=== PATIENT | female | born 1945 | race Caucasian/White ===

== ENCOUNTER 2021-05-22 12:26 | Inpatient (IN) | payer MEDICARE, BC ==
[~2021-05-22] VITALS: Ht 160 cm; Wt 66.7 kg
[2021-05-22] MEDS ORDERED: AMLO-212 PO (12:46)
[2021-05-22] MEDS ORDERED: ATOR40TA PO (12:47)
[2021-05-22] MEDS ORDERED: LEVO25TA9 PO (12:48)
[2021-05-22] MEDS ORDERED: TELM80TA2 PO (12:48)
[2021-05-22] MEDS ORDERED: ZOLP10TA2 PO (12:49)
[2021-05-22] MEDS ORDERED: BUPR-319 PO (12:49)
[2021-05-22] MEDS ORDERED: PANT40TA49 PO (12:49)
[2021-05-22] MEDS ORDERED: LITH450T2 PO (12:50)
[2021-05-22] MEDS ORDERED: RIVA20TA PO (12:50)
[2021-05-22] MEDS ORDERED: QUET25TA PO (12:51)
[2021-05-22] MEDS ORDERED: [UNRECOGNIZED DRUG - CODE] PO (13:04)
[2021-05-22 13:08] LABS: HEMATOCRIT 35.1 % (31.2-41.9); MEAN CORPUSCULAR HEMOGLOBIN 30.6 uug (24.7-32.8); MEAN CORPUSCULAR VOLUME 91.3 fL (75.5-95.3); PLATELET COUNT (AUTO) 359 K/uL (179-408)
[2021-05-22 13:13] LABS: CARBON DIOXIDE 20 mmol/L (21-32); CHLORIDE 105 mmol/L (98-107); GLUCOSE 104 mg/dL (74-106); POTASSIUM 4.4 mmol/L (3.5-5.1); UREA NITROGEN, BLOOD 18 mg/dL (7-18)
[2021-05-22 13:18] LABS: ALANINE AMINOTRANSFERASE 24 U/L (14-59); ALKALINE PHOSPHATASE 130 U/L (50-136); ASPARTATE AMINOTRANSFERASE 15 U/L (15-37); BILIRUBIN,DIRECT 0.1 mg/dL (0.0-0.2); BILIRUBIN,TOTAL 0.3 mg/dL (0.2-1.0); TOTAL PROTEIN, SERUM 7.5 g/dL (6.4-8.2)
[2021-05-22 13:25] LABS: ACETAMINOPHEN < 2.0 ug/mL (10-30); ETHANOL < 3 MG/DL (0-0)
[2021-05-22 13:26] LABS: THYROID STIMULATING HORMONE 1.906 mIU/mL (0.358-3.740)
--- NOTE | 2021-05-22 14:05 | NUR ---
Called PET team/Mariah to evaluate Pt.
--- NOTE | 2021-05-22 15:03 | NUR ---
PET personal injury paralegal, Mariah, bedside, writing a hold for [facility] [employer].
--- NOTE | 2021-05-22 16:34 | NUR ---
Called report to PABLO Gann. Pt going to [facility]
--- NOTE | 2021-05-22 17:30 | NUR ---
Pt trans to [facility], NAD noted.
[2021-05-22 18:00] VITALS: BP 135/57
--- NOTE | 2021-05-22 18:10 | NUR ---
Gps/Nurse Educator- Report received from from You SALINAS . Received patient via wheel chair,alert, oriented x 3, anxious, tremulous, unable to sign her name, but agreed to put her initial in all of the appropriate areas. Called her son Austin Dumont, who is a Nurse Practitioner at [facility] [facility] [employer] [facility] ([phone]) , claimed staff can call his anytime. Patient denies any S.I nor H.I. , but expressed feelings of being depressed for more than a month now. Patient claimed she had her Covid 19 vaccines ( 2020 and second dose on 2020) Patient's son Austin claimed he has the DPOA and will provide the papers when her gets home. Patient also claimed pt. has advance directives , w/c will be provided too on his visit. Oriented to unit settings Routine admission care.
[2021-05-22] MEDS ORDERED: MAGNESIUM HYDROXIDE 30 ML LIQUID UDC PO PRN (18:15)
[2021-05-22] MEDS ORDERED: TEMAZEPAM 7.5 MG CAPSULE PO PRN (18:15)
[2021-05-22] MEDS ORDERED: ACETAMINOPHEN 325 MG TABLET PO PRN (18:15)
[2021-05-22] MEDS ORDERED: LORAZEPAM 0.5 MG TABLET PO PRN (18:15)
[2021-05-22] MEDS ORDERED: MAG HYDROX/AL HYDROX/SIMETH 30 ML LIQUID UDC PO PRN (18:15)
[2021-05-22 20:00] VITALS: BP 110/53
[2021-05-22] MEDS ORDERED: CLONAZEPAM 0.5 MG TABLET PO PRN (20:15)
[2021-05-22] MEDS: ATORVASTATIN 40 MG TABLET PO SCH (20:32)
[2021-05-22] MEDS: RIVAROXABAN 10 MG TABLET PO SCH (20:36)
[2021-05-22] MEDS: ZOLPIDEM 5 MG TABLET PO PRN (22:00)
--- NOTE | 2021-05-23 05:48 | NUR ---
PT SLEPT FOR 7.15 HRS.ABLE TO CALM DOWN AND WENT TO SLEEP.GOOD EFF.OF PRN MEDS.IN NO ACUTE DISTRESS.NO OTHER BEHAVIORA ISSUES.WILL CONTINUE TO MONITOR.
[2021-05-23] MEDS: PANTOPRAZOLE SODIUM 40 MG TABLET.DR PO SCH (06:40)
[2021-05-23] MEDS: LEVOTHYROXINE SODIUM 25 MCG TABLET PO SCH (06:40)
[2021-05-23 07:03] LABS: HEMATOCRIT 31.6 % (31.2-41.9); MEAN CORPUSCULAR HEMOGLOBIN 30.5 uug (24.7-32.8); MEAN CORPUSCULAR VOLUME 91.3 fL (75.5-95.3); PLATELET COUNT (AUTO) 306 K/uL (179-408)
[2021-05-23 07:30] VITALS: BP 123/47
[2021-05-23 07:43] LABS: BILIRUBIN,TOTAL 0.4 mg/dL (0.2-1.0); CREATININE 0.9 mg/dL (0.6-1.3); MAGNESIUM 2.1 mg/dL (1.8-2.4); PHOSPHOROUS 4.3 mg/dL (2.5-4.9); POTASSIUM 4.1 mmol/L (3.5-5.1); TOTAL PROTEIN, SERUM 6.4 g/dL (6.4-8.2)
[2021-05-23] MEDS: AMLODIPINE 5 MG TABLET PO SCH (08:12)
[2021-05-23 08:16] LABS: THYROID STIMULATING HORMONE 2.189 mIU/mL (0.358-3.740)
[2021-05-23] MEDS ORDERED: Medication Not On Formulary EA (Rivaroxaban (Xarelto) 1 TAB) PO SCH (09:00)
[2021-05-23] MEDS ORDERED: ESTRADIOL PO SCH (09:00)
[2021-05-23] MEDS ORDERED: NORETHINDRONE ACETATE PO SCH (09:00)
--- NOTE | 2021-05-23 13:31 | NUR ---
PATIENT SEEN AND EXAMINED BY DR DEL CID WITH NEW ORDERS AND NOTED.
[2021-05-23] MEDS: buPROPion XL 150 MG TAB.SR.24H PO SCH (14:08)
[2021-05-23] MEDS: LITHIUM CARBONATE 150 MG CAPSULE PO SCH ×2 (14:08→16:21)
[2021-05-23 16:00] VITALS: BP 106/44
[2021-05-23] MEDS: RIVAROXABAN 10 MG TABLET PO SCH (16:23)
--- NOTE | 2021-05-23 18:00 | NUR ---
PATIENT IS COOPERATIVE AND COMPLIANT WITH MEDICATIONS AND CARE REMAIN ON XARELTO ORDERED WITH NO S/S OF BLEEDING NOT IN DISTRESS AT THIS TIME.
[2021-05-23 20:17] VITALS: BP 118/48
[2021-05-23] MEDS: ATORVASTATIN 40 MG TABLET PO SCH (20:29)
[2021-05-23] MEDS: QUETIAPINE FUMARATE 25 MG TABLET PO SCH (20:29)
[2021-05-23] MEDS: ZOLPIDEM 5 MG TABLET PO PRN (22:29)
[2021-05-24] MEDS: PANTOPRAZOLE SODIUM 40 MG TABLET.DR PO SCH (06:38)
[2021-05-24] MEDS: LEVOTHYROXINE SODIUM 25 MCG TABLET PO SCH (06:38)
--- NOTE | 2021-05-24 06:56 | NUR ---
PATIENT SLEPT FOR APPROX. 7.15 HOURS THROUGH THE NIGHT. WILL CONTINUE TO MONITOR.
--- NOTE | 2021-05-24 07:30 | NUR ---
Received report from PABLO Floyd. All questions, comments, and concerns were addressed. Received patient asleep in her assigned room. Bed is in low and locked position.
[2021-05-24 08:00] VITALS: BP 100/42
[2021-05-24] MEDS: AMLODIPINE 5 MG TABLET PO SCH (08:37)
[2021-05-24] MEDS: LITHIUM CARBONATE 150 MG CAPSULE PO SCH ×3 (08:38→17:07)
[2021-05-24] MEDS: buPROPion XL 150 MG TAB.SR.24H PO SCH (08:38)
--- NOTE | 2021-05-24 10:39 | NUR ---
JOSH Initial Discharge Plan: Patient currently resides at home [address] [place] [address] by herself. Patient's son Austin Dumont ([phone]) is the DPOA. Patient would like to return home upon discharge. JOSH will continue to work with patient, family, and MD to ensure a safe and proper discharge plan.
--- NOTE | 2021-05-24 10:40 | NUR ---
JOSH Family Contact: JOSH spoke with patient's son Austin Dumont ([phone]) who stated he is the DPOA and will provide the documents within he next few days. Austin stated he will be hiring caregivers for the patient upon discharge. Austin stated he will machine pecan picker the patient and take her home once stable.
--- NOTE | 2021-05-24 10:41 | NUR ---
Treatment Plan: Pt refused to sign treatment plan form due to hand tremors.
--- NOTE | 2021-05-24 10:47 | NUR ---
Firearms Report: [employer] completed and submitted a [employer] firearms report for 5150 grave disability certifications. A copy of report has been placed in patient chart.
--- NOTE | 2021-05-24 12:07 | NUR ---
Patient reporting weakness in bilateral hands post-abdominal surgery. Dr. Bell, psychiatrist, gave orders for neurology consult. Dr. Fried notified of consult, stated he will be here later today.
--- NOTE | 2021-05-24 15:11 | NUR ---
Patient is alert and oriented. She is guarded and withdrawn to her room, anxious, and restless. Patient denies suicidal and homicidal ideation, denies hallucinations. She states that she is extremely anxious and feels like she is in distress due to the anxiety. Patient is compliant with medication, no adverse reaction noted. Patient is able to ambulate with a FWW, able to provide for self care and ADL's independently. Patient encouraged to participate in the unit groups and therapeutic milieu. Patient educated about impulse control and communicating needs to staff appropriately. Bed is in low and locked position.
[2021-05-24 16:45] VITALS: BP 125/42
[2021-05-24] MEDS: RIVAROXABAN 10 MG TABLET PO SCH (17:07)
[2021-05-24 20:00] VITALS: BP 115/49
[2021-05-24] MEDS: QUETIAPINE FUMARATE 25 MG TABLET PO SCH (20:17)
[2021-05-24] MEDS: ATORVASTATIN 40 MG TABLET PO SCH (20:17)
[2021-05-24] MEDS: ZOLPIDEM 5 MG TABLET PO PRN (21:19)
[2021-05-25] MEDS: PANTOPRAZOLE SODIUM 40 MG TABLET.DR PO SCH (06:31)
[2021-05-25] MEDS: LEVOTHYROXINE SODIUM 25 MCG TABLET PO SCH (06:31)
--- NOTE | 2021-05-25 06:38 | NUR ---
PT SLEPT GOOD THRU THE NIGHT AFTER TOOK AMBIEN 10 MG PO LAST NIGHT.STILL HAVING SL.TREMOR BUT ABLE TO HOLD THE MED CUP BETTER THAN LAST NIGHT.WILL ASK DAY SHIFT TO F/U WITH RADIOLOGY DEP.FOR MRI SCHEDULE.WILL CONTINUE TO MONITOR.
--- NOTE | 2021-05-25 07:30 | NUR ---
Received report from PABLO Karu. All questions, comments, and concerns were addressed. Received patient asleep in her assigned bed. bed is in low and locked position.
[2021-05-25 07:52] VITALS: BP 115/37
[2021-05-25] MEDS: buPROPion XL 150 MG TAB.SR.24H PO SCH (08:42)
[2021-05-25] MEDS: AMLODIPINE 5 MG TABLET PO SCH (08:42)
[2021-05-25] MEDS: LITHIUM CARBONATE 150 MG CAPSULE PO SCH ×3 (08:42→16:37)
--- NOTE | 2021-05-25 09:50 | NUR ---
This life underwriter received a call from [facility] Radiology department and spoke with Gagan to schedule patient's ordered MRI for today between [id number]. This life underwriter called [facility] and scheduled pickup for 1130. belt and link shop supervisor and [facility] director notified. Patient notified. Patient states that she is feeling extremely anxious about the MRI due to claustrophobia. Patient educated about her rights as a patient to accept or refuse treatment, educated about risks and benefits, but she states that she does not want to do the MRI. Patient instructed to consider the education and let this life underwriter know her decision by 10am. patient verbalizes understanding.
--- NOTE | 2021-05-25 10:50 | NUR ---
Patient decided she does not want to do the MRI. Patient provided with education about risks and benefits and about coping mechanisms for anxiety, but she is refusing. Patient states she would prefer to follow up with her outpatient physician in regards to the need for an MRI. [facility] radiology called to cancel MRI appointment, [facility] ambulance called to cancel transportation, and ice house supervisor notified about cancellation.
[2021-05-25 16:00] VITALS: BP 115/47
[2021-05-25] MEDS: RIVAROXABAN 10 MG TABLET PO SCH (16:38)
[2021-05-25 20:03] VITALS: BP 131/57
[2021-05-25] MEDS: QUETIAPINE FUMARATE 25 MG TABLET PO SCH (20:47)
[2021-05-25] MEDS: ATORVASTATIN 40 MG TABLET PO SCH (20:47)
[2021-05-25] MEDS: ZOLPIDEM 5 MG TABLET PO PRN (22:10)
[2021-05-26 07:30] VITALS: BP 117/61
[2021-05-26] MEDS: LEVOTHYROXINE SODIUM 25 MCG TABLET PO SCH (10:37)
[2021-05-26] MEDS: PANTOPRAZOLE SODIUM 40 MG TABLET.DR PO SCH (10:37)
[2021-05-26] MEDS: AMLODIPINE 5 MG TABLET PO SCH (10:37)
[2021-05-26] MEDS: LITHIUM CARBONATE 150 MG CAPSULE PO SCH ×3 (10:40→17:50)
[2021-05-26] MEDS: buPROPion XL 150 MG TAB.SR.24H PO SCH (10:41)
[2021-05-26 16:00] VITALS: BP 135/50
[2021-05-26] MEDS: RIVAROXABAN 10 MG TABLET PO SCH (17:50)
--- NOTE | 2021-05-26 20:00 | NUR ---
INTERVIEW, SHE DENIED SI/HI//AH SHE IS ABLE TO VERBALLY CFS. PATIENT NOTED GOAL ORIENTED. SHE STATED "I WANT TO GET BETTER SO I CAN BE AT MY SON'S [place] NEXT MONTH, HE IS A GOOD SON AND HE CARES FOR ME". PATIENT IS REASSURED FOR HER SAFETY. SAFETY AND FALL PRECAUTION IN PLACE, V/S STABLE. SHE IS GIVEN PO FLUIDS AND SACKS. WILL CONTINUE TO MONITOR
[2021-05-26] MEDS: ATORVASTATIN 40 MG TABLET PO SCH (20:51)
[2021-05-26] MEDS: QUETIAPINE FUMARATE 25 MG TABLET PO SCH (20:52)
[2021-05-26 21:06] VITALS: BP 127/65
[2021-05-26] MEDS: ZOLPIDEM 5 MG TABLET PO PRN (21:57)
[2021-05-27] MEDS: PANTOPRAZOLE SODIUM 40 MG TABLET.DR PO SCH (06:39)
[2021-05-27] MEDS: LEVOTHYROXINE SODIUM 25 MCG TABLET PO SCH (06:39)
[2021-05-27 07:30] VITALS: BP 120/50
[2021-05-27] MEDS: LITHIUM CARBONATE 150 MG CAPSULE PO SCH ×3 (08:49→16:05)
[2021-05-27] MEDS: buPROPion XL 150 MG TAB.SR.24H PO SCH (08:49)
--- NOTE | 2021-05-27 09:00 | NUR ---
received patient in her room in bed. she is noted A/O x 3. mood is low, affect is blunted. patient appears depressed; however, she denied SI. she is able to verbally CFS. denial is convincing. She is cooperative with medication regiment diet and plan of care. V/S are stable. she is reassured for her safety. safety and fall precaution are in place. will continue to monitor.
--- NOTE | 2021-05-27 09:54 | NUR ---
Court Hearing: Patient's court hearing for 4960 was today and it was upheld for GD.
[2021-05-27] MEDS: AMLODIPINE 5 MG TABLET PO SCH (09:55)
[2021-05-27] MEDS: DULOXETINE 30 MG CAPSULE.DR PO SCH (13:38)
--- NOTE | 2021-05-27 14:12 | NUR ---
JOSH Coordination of Care: Patient will be following up with her primary physician Richar Humphrey, [address], [place] [address] ([phone]) and has an appointment on June 03 at 10:45AM and spoke with cashier receptionist and will refer to a drug regulatory affairs specialist and SW faxed clinicals ([phone]). Patient will be following up with her psychiatrist Tyrese Singer [address], [place] [address] ([phone]) and has an appointment on June 02 at 2:15PM.
--- NOTE | 2021-05-27 14:45 | NUR ---
Received report from Chris Floyd. All questions, concerns, and comments addressed. Assumed care of patient.
[2021-05-27 15:55] VITALS: BP 133/56
[2021-05-27] MEDS: RIVAROXABAN 10 MG TABLET PO SCH (16:05)
[2021-05-27 19:59] VITALS: BP 126/64
[2021-05-27] MEDS: QUETIAPINE FUMARATE 25 MG TABLET PO SCH (20:12)
[2021-05-27] MEDS: ATORVASTATIN 40 MG TABLET PO SCH (20:12)
[2021-05-27] MEDS: ZOLPIDEM 5 MG TABLET PO PRN (21:55)
[2021-05-28] MEDS: PANTOPRAZOLE SODIUM 40 MG TABLET.DR PO SCH (06:17)
[2021-05-28] MEDS: LEVOTHYROXINE SODIUM 25 MCG TABLET PO SCH (06:18)
[2021-05-28 07:30] VITALS: BP 113/48
--- NOTE | 2021-05-28 08:12 | NUR ---
Discharge Note: Patient will be discharged Home [address] [place] [address] with caregiver. Patent;s son Austin Dumont ([phone]) is the DPOA and will be picking up patient and taking her home today at 10AM. Patient is alert and oriented x4 and is aware and agreeable with discharge plan. Patient denies suicidal or homicidal ideation. Patient presents with appropriate mood and congruent affect. Patient will be following up with her primary physician Richar Humphrey, [address], [place] [address] ([phone]) and has an appointment on June 03 at 10:45AM and spoke with hotel or motel receptionist and will refer to a chemical operations specialist and faxed clinicals ([phone]). Patient will be following up with her psychiatrist Tyrese Singer [address], [place] [address] ([phone]) and has an appointment on June 02 at 2:15PM.
[2021-05-28 09:13] VITALS: BP 113/48
[2021-05-28] MEDS: DULOXETINE 30 MG CAPSULE.DR PO SCH (09:13)
[2021-05-28] MEDS: LITHIUM CARBONATE 150 MG CAPSULE PO SCH (09:13)
[2021-05-28] MEDS: AMLODIPINE 5 MG TABLET PO SCH (09:13)
[2021-05-28] MEDS: buPROPion XL 150 MG TAB.SR.24H PO SCH (09:23)
--- NOTE | 2021-05-28 10:00 | NUR ---
Pt is being discharged home with her son, Jojo. Pt is alert and aware and willing to go. All belongins returned, paperwork signed. Prescription medications were called to the patient's pharmacy.
--- NOTE | 2021-05-28 10:19 | NUR ---
CALLED IN PRESCRIPTIONS FOR PT TO HER PREFERRED PHARMACY: [facility] TO [facility]ACIST [facility].
== END 2021-05-28 10:15 | disposition home or self-care (01) | DRG 885 ==
LOC: ER 12:26 → GPS 17:47
PROVIDERS: ADMIT Psychiatry & Neurology Psychiatry; ATTEND Nurse Practitioner Acute Care
DX: F31.30 Bipolar disorder, current episode depressed, mild or moderate severity, unspecified (principal); E03.9 Hypothyroidism, unspecified; I10 Essential (primary) hypertension; Z79.01 Long term (current) use of anticoagulants; Z96.649 Presence of unspecified artificial hip joint; D50.9 Iron deficiency anemia, unspecified; E78.5 Hyperlipidemia, unspecified; M43.12 Spondylolisthesis, cervical region; Z85.07 Personal history of malignant neoplasm of pancreas; D64.9 Anemia, unspecified; F60.3 Borderline personality disorder; R53.1 Weakness; Z20.822 Contact with and (suspected) exposure to COVID-19; Z73.6 Limitation of activities due to disability
CPT/HCPCS: 36415; 70030-TC; 72125; 83735; 84100; 84443; 85025; 93005; 97161; A4663; G0480